=== PATIENT | female | born 1945 | race Caucasian/White ===

== ENCOUNTER → 2017-05-24 | Outpatient (CLI) | payer BC ==
--- NOTE | 2017-05-24 12:07 | PCVCIMAG ---
APPROVED REPORT Study performed: 05/24/2017 09:02:24 EXAM: Comprehensive 2D, Doppler, and color-flow Echocardiogram Patient Location: Echo lab Status: routine Other Information Study Quality: Good Risk Factors: Cardiac Risk Factors: HTN, Hyperlipidemia Indications Murmur 2D Dimensions LVEF(%): 70.00 (>50%) IVSd: 10.44 (7-11mm)LVOT Diam: 19.82 (18-24mm) LVDd: 44.56 mm PWd: 8.14 (7-11mm)Ascending Ao: 36.01 (22-36mm) LVDs: 24.99 (25-40mm) Left Atrium: 33.47 (27-40mm) LV Single Plane 4CH: 78.22 % LV Single Plane 2CH: 64.41 %Ojeda's LVEF: 71.32 % Biplane EF: 72.9 % Volumes Left Atrial Volume (Systole) Single Plane 4CH: 62.47 mLSingle Plane 2CH: 34.19 mL LA ESV Index: 22.00 mL/m2 Aortic Valve AoV Peak Michael.: 1.31 m/s AO Peak Gr.: 7.42 mmHgLVOT Max P.00 mmHg LVOT Max V: 0.98 m/s AMBER Vmax: 2.31 cm2 Mitral Valve E/A Ratio: 0.7 MV Decel. Time: 287.12 ms MV E Max Michael.: 0.56 m/s MV A Michael.: 0.86 m/s IVRT: 83.04 ms TDI E/Lateral E': 7.00E/Medial E': 9.33 Medial E' Michael.: 0.06 m/s Lateral E' Michael.: 0.08 m/s Pulmonary Valve PV Peak Michael.: 1.16 m/sPV Peak Gr.: 5.47 mmHg Pulmonary Vein P Vein S: 0.53 m/sP Vein A: 0.27 m/s P Vein D: 0.31 m/sP Vein A Dur.: 114.2 msec P Vein S/D Ratio: 1.71 Tricuspid Valve TR Peak Michael.: 2.29 m/sRAP Estimate: 7.00 mmHg TR Peak Gr.: 20.96 mmHg Left Ventricle The left ventricle is normal size. There is normal LV segmental wall motion. There is normal left ventricular wall thickness. Left ventricular systolic function is normal. The left ventricular ejection fraction is within the normal range. LVEF is 65-70%. Grade I - abnormal relaxation pattern. Right Ventricle The right ventricle is normal size. The right ventricular systolic function is normal. Atria The left atrium size is normal. The right atrium size is normal. Aortic Valve The aortic valve is normal in structure. No aortic regurgitation is present. There is no aortic valvular stenosis. Mitral Valve The mitral valve is normal in structure. Trace mitral regurgitation. No evidence of mitral valve stenosis. Tricuspid Valve The tricuspid valve is normal in structure. Trace tricuspid regurgitation. Pulmonary Artery pressure is 28mmHg. Pulmonic Valve The pulmonary valve is normal in structure. Trace pulmonic regurgitation. Great Vessels The aortic root is normal in size. IVC is normal in size and collapses with >50% inspiration Pericardium There is no pericardial effusion. <Conclusion> The left ventricle is normal size. LVEF is 65-70%. The aortic valve is normal in structure. No aortic regurgitation is present. The mitral valve is normal in structure. Trace mitral regurgitation. The tricuspid valve is normal in structure. Trace tricuspid regurgitation. Pulmonary Artery pressure is 28mmHg. The pulmonary valve is normal in structure. Trace pulmonic regurgitation.
== END | disposition home or self-care (01) ==
LOC: PCVCIMAG 08:51
PROVIDERS: ATTEND Internal Medicine
DX: I34.0 Nonrheumatic mitral (valve) insufficiency (principal); I07.1 Rheumatic tricuspid insufficiency; I37.1 Nonrheumatic pulmonary valve insufficiency; I10 Essential (primary) hypertension; E78.5 Hyperlipidemia, unspecified
CPT/HCPCS: 93306